=== PATIENT | female | born 1995 | race Caucasian/White ===

== ENCOUNTER 2023-05-05 12:38 | Emergency (ER) | payer SELFPAY ==
[2023-05-05 12:39] VITALS: BP 138/94; PULSE 87; RESP 16; TEMP 36.6; O2SAT 100; BMI 26.6
--- NOTE | 2023-05-05 13:06 | EDS_ITS ---
HPI History of Present Illness Chief Complaint: Dental Informant: patient Narrative Narrative: Patient presents with dental pain. Patient states her teeth have been hurting her a little bit for a while. But over the last 3 to 5 days its been hurting more. It is all left lower jaw over her wisdom tooth. No swelling or drainage. No trouble swallowing. No fevers or chills. No acute trauma. She has an appointment to see a dentist in 2 days on Saturday. PFSH PFSH Home Medications naproxen 500 mg tablet 500 mg PO BID #14 tabs 05/05/23 [Rx Last Taken Unknown] penicillin V potassium 500 mg tablet 500 mg PO 4X/DAY #40 tabs 05/05/23 [Rx Last Taken Unknown] Allergy/AdvReac Type Severity Reaction Status Date / Time No Known Allergies Allergy Verified 05/05/23 12:40 Surgical History (Updated 05/05/23 @ 13:11 by Yessica Almaraz) H/O wisdom tooth extraction History of tonsillectomy and adenoidectomy ROS ROS ED Constitutional Constitutional ED: Denies chills, fever(s) or subjective Eyes Eyes: Denies blurry vision ENT ENT ED: Reports other Details: See history of present illness. ; Denies ear pain or sore throat Cardiovascular Cardiovascular: Denies chest pain or palpitations Respiratory/Chest Respiratory/Chest: Denies cough Gastrointestinal Gastrointestinal: Denies nausea or vomiting Musculoskeletal Musculoskeletal: Denies neck pain Integumentary Denies rash Neurologic Neurologic: Denies headache(s) Hematologic/Lymphatic Hematologic/Lymphatic: Denies easy bleeding, easy bruising or lymphadenopathy Allergic/Immunologic Allergic/Immunologic ED: Denies urticaria EXAM Physical Exam Narrative Exam Narrative: Patient is awake alert no acute distress sitting comfortably in the bed. HEENT shows no external swelling or erythema. She can open and close mouth easily. No sinus tenderness. Patient does have broken off top portion of the enamel of her left lower wisdom tooth. Mild erythema of the gums over this. But no sign of Ludewig's angina. Her voice is normal. Tongue moves normally. Speech is normal. She has normal swallowing. Neck is free range of motion. No swelling or lymphadenopathy. Lungs are clear. Heart is regular. Skin shows no rashes. Const Vital Signs: 05/05/23 12:39 Temperature 98 F Temperature Source Temporal Pulse Rate 87 Respiratory Rate 16 Blood Pressure 138/94 H Blood Pressure Mean 108 Pulse Ox 100 Oxygen Delivery Method Room Air MDM MDM MDM Narrative Medical decision making narrative: Patient will be started on nonsteroidals antibiotics. She should still follow- up with her dentist as scheduled on Saturday. Discharge Plan Triage Chief Complaint: Dental ED Provider: Pancho Arguelles Dx/Rx/DC Orders Clinical Impression: Pain due to dental caries, Dental infection Instructions: ED Dental Abscess Prescriptions: New penicillin V potassium 500 mg tablet 500 mg PO 4X/DAY Qty: 40 0RF naproxen 500 mg tablet 500 mg PO BID Qty: 14 0RF Primary Care Provider: NOT,DEFINED Referrals: NOT,DEFINED [Primary Care Provider] - Activity Restrictions/Additional Instructions: Follow-up with your dentist as scheduled on Saturday. Disposition Disposition: Home, Self Care
[2023-05-05] MEDS: Oxycodone/Apap 5/325 Tablet PO (13:20)
== END 2023-05-05 13:45 | disposition home or self-care (01) ==
PROVIDERS: Emergency Provider Emergency Medicine; Visit Provider Emergency Medicine
DX: K02.9 Dental caries, unspecified (principal); K04.7 Periapical abscess without sinus
CPT/HCPCS: 99283